=== PATIENT | male | born 1965 | race Caucasian/White ===

== ENCOUNTER 2024-12-08 02:02 | Emergency (ER) | payer OTHER ==
[~2024-12-08] VITALS: Ht 177.8 cm; Wt 86.2 kg
[2024-12-08 03:32] VITALS: BP 140/78; TEMP 98; O2SAT 98
== END 2024-12-08 03:30 | disposition home or self-care (01) ==
LOC: ER 02:06
DX: R06.2 Wheezing (principal); R05.9 Cough, unspecified; I10 Essential (primary) hypertension; E11.9 Type 2 diabetes mellitus without complications; Z86.73 Personal history of transient ischemic attack (TIA), and cerebral infarction without residual deficits; Z60.2 Problems related to living alone; Z87.891 Personal history of nicotine dependence; Z88.0 Allergy status to penicillin
CPT/HCPCS: 71045-TC